=== PATIENT | female | born 1995 | race Two or more races ===

== ENCOUNTER 2020-02-29 05:56 | Inpatient (IN) ==
[2020-02-29] MEDS ORDERED: ONDANSETRON 4 MG/2 ML VIAL ONE (06:08)
[2020-02-29] MEDS ORDERED: MEPERIDINE 50 MG/1 ML VIAL ONE (06:08)
[2020-02-29] MEDS ORDERED: OXYTOCIN/LR 20 UNIT/1,000 ML BAG IV ONE ×2 (06:09→06:19)
[2020-02-29] MEDS ORDERED: LIDOCAINE 1% 50 ML VIAL ONE (06:12)
[2020-02-29] MEDS ORDERED: ACETAMINOPHEN 325 MG TABLET PO PRN ×2 (06:27→08:56)
[2020-02-29] MEDS ORDERED: MEPERIDINE 50 MG/1 ML VIAL IM PRN (06:27)
[2020-02-29 06:28] LABS: Cord Venous Blood HCO3 22.1 MMOL/L; Cord Venous Blood PCO2 39.5 MMHG; Cord Venous Blood PO2 33.8
[2020-02-29] MEDS ORDERED: LACTATED RINGERS 1,000 ML IV SCH (06:30)
[2020-02-29] MEDS ORDERED: INFLUENZA VIRUS VACCINE 0.5 ML SYRINGE IM ONE (06:32)
[2020-02-29] MEDS: ONDANSETRON 4 MG/2 ML VIAL IV PRN (07:37)
[2020-02-29] MEDS ORDERED: MEPERIDINE 50 MG/1 ML VIAL IV ONE (07:39)
[2020-02-29] MEDS ORDERED: BENZOCAINE 20%/MENTHOL 0.5% SPRAY 56 GM CAN TOP PRN (08:56)
[2020-02-29] MEDS ORDERED: LANOLIN 50% CREAM 0.3 OZ TUBE TOP PRN (08:56)
[2020-02-29] MEDS ORDERED: oxyCODONE/ACETAMINOPHEN 5-325 MG TABLET PO PRN (08:56)
[2020-02-29] MEDS ORDERED: DIPH/TET/ACEL PERT BOOSTER VACCINE 0.5 ML VIAL IM ONE (08:56)
[2020-02-29] MEDS ORDERED: MEASLES/MUMPS/RUBELLA VACCINE 0.5 ML VIAL SUBCUT ONE (08:56)
[2020-02-29] MEDS ORDERED: BISACODYL 10 MG SUPP RECTAL PRN (08:56)
[2020-02-29] MEDS ORDERED: WITCH HAZEL PADS 100/JAR TOP PRN (08:56)
[2020-02-29] MEDS ORDERED: HYDROCORTISONE 2.5% RECTAL CREAM 30 GM TUBE TOP PRN (08:56)
[2020-02-29] MEDS: IBUPROFEN 800 MG TABLET PO PRN ×2 (09:26→18:20)
[2020-02-29] MEDS: oxyCODONE/ACETAMINOPHEN 5-325 MG TABLET PO PRN ×2 (09:26→18:20)
[2020-02-29] MEDS: DOCUSATE SODIUM 100 MG CAPSULE PO SCH (09:27)
[2020-02-29 12:58] LABS: Basophils % 0.2 % (0.0-0.8); Eosinophils % 0.1 % (0.00-10.9); Hematocrit 33.2 VOL% (35.7-47.0); Hemoglobin 11.2 GM/DL (12.0-16.0); Immature Granulocytes % 0.4 %; Immature Granulocytes Absolute 0.07 #; Lymphocytes # 1.8 10*3/uL (1.4-4.0); Lymphocytes % 10.6 % (21.3-54.2); Mean Corpuscular HGB Conc 33.7 GM/DL (32-36); Mean Platelet Volume 11.1 FL (9.6-12.0); Monocytes % 4.2 % (1.7-12.7); Neutrophils % 84.5 % (38.7-73.9); Platelet Count 178 T/CUMM (130-400); Red Blood Count 3.69 MC/CUMM (3.8-5.5); Red Cell Distribution Width 13.2 % (9.3-17.3); White Blood Count 16.6 T/CUMM (4-12)
[2020-02-29 13:16] LABS: Albumin 2.5 G/DL (3.4-5.0); Bilirubin,Total 0.4 MG/DL (0.2-1.0); Calcium 8.3 MG/DL (8.5-10.1); Osmolality,Calculated 271.7 MOS/KG (273-304); Potassium 4.2 MMOL/L (3.5-5.1); Total Protein 6.7 G/DL (6.4-8.3)
[2020-02-29] MEDS ORDERED: ALUMINUM/MAGNES/SIMETH MAX STR 30 ML UDCUP PO PRN (22:36)
[2020-03-01] MEDS: DOCUSATE SODIUM 100 MG CAPSULE PO SCH (01:37)
[2020-03-01] MEDS: IBUPROFEN 100 MG/5 ML UDCUP PO PRN ×2 (04:19→20:09)
[2020-03-01] MEDS: oxyCODONE/ACETAMINOPHEN 5-325 MG TABLET PO PRN (04:20)
[2020-03-01] MEDS: ONDANSETRON 4 MG/2 ML VIAL IV PRN (05:26)
[2020-03-01] MEDS: DOCUSATE SODIUM 100 MG/10 ML UDCUP PO SCH ×2 (10:03→21:00)
[2020-03-02] MEDS: IBUPROFEN 100 MG/5 ML UDCUP PO PRN (07:37)
[2020-03-02 08:06] VITALS: BP 122/81
[2020-03-02] MEDS: DOCUSATE SODIUM 100 MG/10 ML UDCUP PO SCH (09:30)
== END 2020-03-02 11:30 | disposition home or self-care (01) | DRG 560 ==
LOC: N.LDOUT 05:56 → N.LD 05:57 → N.OB 08:09
PROVIDERS: ADMIT Specialist; ATTEND Specialist